=== PATIENT | female | born 1965 | race Caucasian/White ===

== ENCOUNTER 2019-05-20 08:29 | Observation (INO) | payer OTHER, SELFPAY ==
[2019-05-20 08:52] LABS: Urine Blood 1+ (NEG); Urine Glucose NEGATIVE (NEG); Urine Protein TRACE (NEG); Urine Specific Gravity 1.015 (1.005-1.030)
[2019-05-20] MEDS ORDERED: ONDANSETRON 4 MG/2 ML VIAL ONE (09:12)
[2019-05-20] MEDS ORDERED: FAMOTIDINE 20 MG/2 ML VIAL IV ONE (09:12)
[2019-05-20] MEDS ORDERED: MORPHINE 2 MG/ML SYR ONE ×2 (09:12→09:51)
[2019-05-20] MEDS ORDERED: NA CHLORIDE 0.9% 1,000 ML ONE (09:12)
[2019-05-20 09:17] LABS: Absolute Lymphocytes (CBC) 1.4 K/uL (0.7-4.9); Basophils % 0.4 % (0-1.3); Hematocrit 37.9 % (36.0-45.0); Lymphocytes % 9.9 % (15.3-44.8); RBC Red Blood Cell Count 4.09 M/uL (3.86-4.86)
[2019-05-20 09:21] LABS: Protime INR 0.95
[2019-05-20 09:27] LABS: Urine Bacteria <20 /HPF (<20); Urine Culture Reflex Order NOT NEEDED; Urine Mucus SLIGHT /HPF (NONE SEEN); Urine RBC <5 /HPF (NONE SEEN)
[2019-05-20 09:43] LABS: ALT/SGPT 39 U/L (12-78); AST/SGOT 29 U/L (15-37); Albumin 3.8 g/dL (3.4-5.0); Alkaline Phosphatase 115 U/L (45-117); BUN Blood Urea Nitrogen 24 mg/dL (7-18); Bicarbonate 25 mmol/L (21-32); Bilirubin Direct < 0.1 mg/dL (0-0.2); Bilirubin Total 0.3 mg/dL (0.2-1.0); Glucose Level 131 mg/dL (74-106); Lipase 79 U/L (73-393); NT PRO-BNP 30 pg/mL (<125); Potassium 4.2 mmol/L (3.5-5.1); Protein, Total 8.6 g/dL (6.4-8.2); Sodium Level 136 mmol/L (136-145); Troponin (Emerg Dept Use Only) < 0.02 ng/mL (0.0-0.045)
[2019-05-20] MEDS ORDERED: CEFTRIAXONE/SWI 1gm 1 GM/10 ML SYR ONE (10:24)
[2019-05-20] MEDS ORDERED: PIPER/TAZO/NS 3.375gm 3.375 GM/100 ML BAG ONE (10:31)
--- NOTE | 2019-05-20 10:31 | RAD REPORT ---
EXAM DESCRIPTION: CT - Abdomen Pelvis W Contrast - 05/20/2019 10:12 am CLINICAL HISTORY: ABD PAIN COMPARISON: None. TECHNIQUE: Biphasic, helical CT imaging of the abdomen and pelvis was performed following 100 ml non -ionic IV contrast. No oral contrast given. All CT scans are performed using dose optimization technique as appropriate and may include automated exposure control or mA/KV adjustment according to patient size. FINDINGS: No suspicious findings in the lung bases. The liver, spleen, and pancreas show no suspicious findings. Gallbladder and biliary tree are also wi thout suspicious finding. Patient has severe hydronephrosis of the pelvis and calices of the right kidney without hydroureter. No dilatation of the left collecting system. Cortical thinning is noted on the right when compared to the left with a more lobulated contour to the kidney. Renal function is not clearly asymmetric. Nono bstructing calculi seen in the upper pole of the right kidney. No pyelonephritis or acute parenchymal process. No bladder abnormalities. No adrenal abnormalities. No gastric dilatation or gastric wall thickening. No small bowel abnormality. The appendix is abnorma l at 13 mm. Periappendiceal inflammatory stranding is present. No fecalith seen. No mass is identifie d. Remainder the colon is unremarkable. The no free air or pneumatosis. Small quantity of fluid is p resent in the cul de sac and right adnexa believed to be reactive fluid from the appendicitis. No ma ss or bulky lymphadenopathy. Small fat only umbilical hernia is present. Tubal ligation clips are present. No left ovarian abnormality. A 2.5 centimeter low-density mass is p resent right lower uterine segment region probably a small fibroid. This is potentially a large nabot hian cyst. No primary right ovarian process suspected. Disc and bony degenerative changes are present. No acute vascular finding. IMPRESSION: Acute appendicitis findings are present. The appendix is in classic right lower quadrant location. Periappendiceal inflammatory stranding is present. No abscess, free air or other complicating factor. Severe hydronephrosis of the pelvis and calices of the right kidney without clear delay or asymmetry of function. 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 Additional nonacute findings detailed in the body of the report.
--- NOTE | 2019-05-20 10:43 | ER ---
Nurse's Notes [facility] Name: Herminia Cleaning Age: 54 yrs Sex: Female : 1965 Arrival Date: 05/20/2019 Time: 08:32 Bed 15 Private MD: Unknown, Unknown Diagnosis: Acute appendicitis Presentation: 05/20 08:53 Presenting complaint: Patient states: Had a couple drinks last night, home by 1230. At jl7 about 0300 my stomach was burning, vomited once and then my chest started hurting, radiating to left arm and back. It also feels like I need to pee when I stand up but I don't. Transition of care: patient was not received from another setting of care. Onset of symptoms was May 20, 2019 at 03:00. Risk Assessment: Do you want to hurt yourself or someone else? Patient reports no desire to harm self or others. Initial Sepsis Screen: Does the patient meet any 2 criteria? No. Patient's initial sepsis screen is negative. Does the patient have a suspected source of infection? No. Patient's initial sepsis screen is negative. Care prior to arrival: None. 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 - Social history:: Smoking status: Patient/guardian denies using tobacco, Patient uses alcohol, occasionally. - Ebola Screening: : No symptoms or risks identified at this time. Screenin:10 Abuse screen: Denies threats or abuse. Nutritional screening: No deficits noted. em Tuberculosis screening: No symptoms or risk factors identified. Fall Risk None identified. Assessment: 08:35 General: Appears in no apparent distress. uncomfortable, Behavior is calm, cooperative, jl7 appropriate for age. Pain: Complains of pain in anterior aspect of left upper chest Pain radiates to back and left arm Pain currently is 9 out of 10 on a pain scale. Quality of pain is described as squeezing, Pain began 0300 Is continuous. Neuro: Level of Consciousness is awake, alert, obeys commands, Oriented to person, place, time, situation. Cardiovascular: Patient's skin is warm and dry. Rhythm is sinus rhythm. Respiratory: Airway is patent Respiratory effort is even, unlabored, Respiratory pattern is regular, symmetrical. GI: Abdomen is round non-distended, Reports epigastric pain, nausea, vomiting. : Reports urinary frequency. Derm: Skin is pink, warm \T\ dry. 09:45 Reassessment: Pt reports decreased chest pain and decreased epigastric burning. Reports jl7 RLQ pain, feels like pressure, rated 9/10, pt guarding, reports last BM 2 days ago. ERP notified, see MAR for orders. Vital Signs: 08:56 BP 156 / 97; Pulse 91; Resp 16 S; Temp 98.3(O); Pulse Ox 100% on R/A; Weight 99.79 kg jl7 (R); Height 5 ft. 2 in. (157.48 cm) (R); Pain 9/10; 09:30 BP 126 / 58; Pulse 83; Resp 16 S; Pulse Ox 100% on R/A; Pain 9/10; jl7 10:45 BP 122 / 65; Pulse 81; Resp 16 S; Pulse Ox 100% on R/A; jl7 13:00 BP 128 / 76; Pulse 77; Resp 16 S; Pulse Ox 100% on R/A; jl7 08:56 Body Mass Index 40.24 (99.79 kg, 157.48 cm) jl7 ED Course: 08:32 Patient arrived in ED. ag5 08:33 Unknown, Unknown is Private Physician. ag5 08:33 Lotus Goldstein RN is Primary Nurse. jl7 08:35 Eddi Don MD is Attending Physician. kdr 08:55 Triage completed. jl7 08:56 Arm band placed on right wrist. jl7 09:07 Urine collected: clean catch specimen, cloudy. ms 09:10 Patient has correct armband on for positive identification. Placed in gown. Bed in low em position. Call light in reach. Side rails up X2. groundwater monitoring technician on. Pulse ox on. NIBP on. 09:10 Initial lab(s) drawn, by me, sent to lab. Inserted saline lock: 22 gauge in right em antecubital area, using aseptic technique. Blood collected. 09:10 Patient maintains SpO2 saturation greater than 95% on room air. em 09:18 Radiology exam delayed due to lab results not completed at this time. (BUN/Creatinine). kw1 09:24 XRAY Chest (1 view) In Process Unspecified. EDMS 10:11 CT Abd/Pelvis - IV Contrast Only In Process Unspecified. EDMS 10:16 CT completed. Patient tolerated procedure well. Patient moved back from CT. ka 10:41 Fady Duarte MD is Hospitalizing Provider. kdr 12:06 initiated a transfer with Isi at the [facility] transfer center. eb 12:[address] Portillo the hospitalist substation designer for [facility] with Dr. Don for patient transfer consultation. 13:31 Fady Duarte MD is Hospitalizing Provider. kdr 13:54 No provider procedures requiring assistance completed. Patient admitted, IV remains in jl7 place. intact, No redness/swelling at site. Administered Medications: 09:12 Drug: NS 0.9% 1000 ml Route: IV; Rate: 1 bolus; Site: right antecubital; jl7 10:30 Follow up: Response: No adverse reaction; IV Status: Completed infusion; IV Intake: jl7 1000ml 09:13 Drug: Pepcid 20 mg Route: IVP; Site: right antecubital; jl7 09:59 Follow up: Response: No adverse reaction; Marked relief of symptoms jl7 09:14 Drug: Zofran 4 mg Route: IVP; Site: right antecubital; jl7 09:45 Follow up: Response: No adverse reaction jl7 09:16 Drug: morphine 2 mg Route: IVP; Site: right antecubital; jl7 09:45 Follow up: Response: No adverse reaction; Pain is decreased jl7 09:55 Drug: morphine 4 mg Route: IVP; Site: right antecubital; jl7 10:10 Follow up: Response: No adverse reaction; Pain is unchanged, physician notified jl7 10:32 Drug: Rocephin 1 grams Route: IV; Rate: calculated rate; Site: right antecubital; jl7 10:35 Follow up: Response: No adverse reaction; IV Status: Completed infusion jl7 10:43 Drug: Zosyn 4.5 grams Route: IVPB; Infused Over: 60 mins; Site: right antecubital; jl7 11:43 Follow up: Response: No adverse reaction; IV Status: Completed infusion jl7 11:46 Drug: fentaNYL (PF) 50 mcg Route: IVP; Site: right antecubital; jl7 12:00 Follow up: Response: No adverse reaction; Pain is decreased jl7 Intake: 10:30 IV: 1000ml; Total: 1000ml. jl7 Outcome: 10:43 Decision to Hospitalize by Provider. kdr 12:27 ER care complete, transfer ordered by . kdr 13:31 Decision to Hospitalize by Provider. kdr 13:54 Admitted to OR accompanied by nurse, via stretcher, with chart. jl7 13:54 Condition: stable 13:54 Discharge instructions given to patient, Instructed on the need for admit, Demonstrated understanding of instructions. 13:55 Patient left the ED. jl7 Signatures: Dispatcher [employer] EDMS Eddi Don MD MD [facility] Adarsh Traylor, ANALYST GEOCHEMICAL PROSPECTING ANALYST GEOCHEMICAL PROSPECTING Maria Guadalupe Poon ms, Lotus Perales, RN RN jl7 Devika Lau1 Brianne Mireles, Jazmín ag5 Corrections: (The following items were deleted from the chart) 09:35 General: Appears in no apparent distress. uncomfortable, Behavior is calm, jl7 cooperative, appropriate for age, jl7 09:35 Pain: Complains of pain in anterior aspect of left upper chest Pain radiates to jl7 back and left arm Pain currently is 9 out of 10 on a pain scale. Quality of pain is described as squeezing, Pain began 0300 Is continuous, jl7 09:35 Neuro: Level of Consciousness is awake, alert, obeys commands, Oriented to jl7 person, place, time, situation, jl7 09:35 Cardiovascular: Patient's skin is warm and dry. Rhythm is sinus rhythm jl7 jl7 09:35 Respiratory: Airway is patent Respiratory effort is even, unlabored, Respiratory jl7 pattern is regular, symmetrical, jl7 09:35 GI: Abdomen is round non-distended, Reports epigastric pain, nausea, vomiting, [id number] 09:57 09:35 : Reports urinary frequency, jl7 jl7 09:57 09:35 Derm: Skin is pink, warm \T\ dry. jl7 jl7
--- NOTE | 2019-05-20 10:44 | EDPHYS ---
Physician Documentation [facility] Name: Herminia Cleaning Age: 54 yrs Sex: Female : 1965 Arrival Date: 05/20/2019 Time: 08:32 Bed 15 Private MD: Unknown, Unknown ED Physician Eddi Don HPI: 05/20 09:22 This 54 yrs old Female presents to ER via Ambulatory with complaints of Chest kdr Pain, Abdominal Pain, Back Pain. 09:22 The patient or guardian reports chest pain that is located primarily in the epigastric kdr area, anterior chest wall, left, chest diffusely. Onset: suddenly, this morning, at 03:00. The pain radiates to the left scapula, back. Associated signs and symptoms: Pertinent positives: abdominal pain, nausea, Pertinent negatives: recent travel, shortness of breath, syncope, vomiting. The chest pain is described as aching, burning, causing indigestion, a pressure. Duration: The patient or guardian reports a single episode, that is still ongoing, but improving. Modifying factors: The symptoms are alleviated by nothing. the symptoms are aggravated by nothing. Severity of pain: At its worst the pain was moderate severe just prior to arrival, in the emergency department the pain is unchanged. The patient has not experienced similar symptoms in the past. The patient has not recently seen a physician. States that last evening in the hour or so prior to midnight she had several alcoholic beverages and then awoke at 03:00 with severe abdominal and chest pain. 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 - Social history:: Smoking status: Patient/guardian denies using tobacco, Patient uses alcohol, occasionally. - Ebola Screening: : No symptoms or risks identified at this time. ROS: 09:22 Constitutional: Negative for fever, chills, and weight loss, Eyes: Negative for injury, kdr pain, redness, and discharge, ENT: Negative for injury, pain, and discharge, Neck: Negative for injury, pain, and swelling, Respiratory: Negative for shortness of breath, cough, wheezing, and pleuritic chest pain, Back: Negative for injury and pain, : Negative for injury, bleeding, discharge, and swelling, MS/Extremity: Negative for injury and deformity, Skin: Negative for injury, rash, and discoloration, Neuro: Negative for headache, weakness, numbness, tingling, and seizure activity. Psych: Negative for depression, anxiety, suicide ideation, homicidal ideation, and hallucinations, Allergy/Immunology: Negative for hives, rash, and allergies, Endocrine: Negative for neck swelling, polydipsia, polyuria, polyphagia, and marked weight changes, Hematologic/Lymphatic: Negative for swollen nodes, abnormal bleeding, and unusual bruising. 09:22 Cardiovascular: Positive for chest pain, of the xyphoid area, mid-sternal area, right breast and left breast, Negative for edema, orthopnea, palpitations, paroxysmal nocturnal dyspnea. 09:22 Abdomen/GI: Positive for abdominal pain, abdominal cramps, Negative for abdominal distension, dysphagia, hematemesis, black/tarry stool, rectal pain, rectal bleeding, bowel incontinence, flatulence. Exam: 09:22 Constitutional: This is a well developed, well nourished patient who is awake, alert, kdr and in no acute distress. Head/Face: Normocephalic, atraumatic. Eyes: Pupils equal round and reactive to light, extra-ocular motions intact. Lids and lashes normal. Conjunctiva and sclera are non-icteric and not injected. Cornea within normal limits. Periorbital areas with no swelling, redness, or edema. Neck: Trachea midline, no thyromegaly or masses palpated, and no cervical lymphadenopathy. Supple, full range of motion without nuchal rigidity, or vertebral point tenderness. No Meningismus. Chest/axilla: Normal chest wall appearance and motion. Nontender with no deformity. No lesions are appreciated. Cardiovascular: Regular rate and rhythm with a normal S1 and S2. No gallops, murmurs, or rubs. Normal PMI, no JVD. No pulse deficits. Respiratory: Lungs have equal breath sounds bilaterally, clear to auscultation and percussion. No rales, rhonchi or wheezes noted. No increased work of breathing, no retractions or nasal flaring. Back: No spinal tenderness. No costovertebral tenderness. Full range of motion. Skin: Warm, dry with normal turgor. Normal color with no rashes, no lesions, and no evidence of cellulitis. MS/ Extremity: Pulses equal, no cyanosis. Neurovascular intact. Full, normal range of motion. Neuro: Awake and alert, GCS 15, oriented to person, place, time, and situation. Cranial nerves II-XII grossly intact. Motor strength 5/5 in all extremities. Sensory grossly intact. Cerebellar exam normal. Normal gait. Psych: Awake, alert, with orientation to person, place and time. Behavior, mood, and affect are within normal limits. 09:22 Abdomen/GI: Inspection: abdomen appears normal, Bowel sounds: active, diminished, in all quadrants, Palpation: soft, mild abdominal tenderness, in the abdomen diffusely, mass, is not appreciated, rebound tenderness, is not appreciated. 09:22 ECG was reviewed by the Attending Physician. kdr Vital Signs: 08:56 BP 156 / 97; Pulse 91; Resp 16 S; Temp 98.3(O); Pulse Ox 100% on R/A; Weight 99.79 kg jl7 (R); Height 5 ft. 2 in. (157.48 cm) (R); Pain 9/10; 09:30 BP 126 / 58; Pulse 83; Resp 16 S; Pulse Ox 100% on R/A; Pain 9/10; jl7 10:45 BP 122 / 65; Pulse 81; Resp 16 S; Pulse Ox 100% on R/A; jl7 13:00 BP 128 / 76; Pulse 77; Resp 16 S; Pulse Ox 100% on R/A; jl7 08:56 Body Mass Index 40.24 (99.79 kg, 157.48 cm) jl7 MDM: 10:43 Patient medically screened. kdr 10:43 Data reviewed: vital signs, nurses notes, lab test result(s), radiologic studies. kdr Counseling: I had a detailed discussion with the patient and/or guardian regarding: the historical points, exam findings, and any diagnostic results supporting the discharge/admit diagnosis, lab results, radiology results, the need for further work-up and treatment in the hospital. Physician consultation: Fady Duarte MD regarding admission, patient's condition, need to evaluate the patient as soon as possible. 05/20 08:46 Order name: Urine Culture eb 05/20 08:46 Order name: Urine Microscopic Only; Complete Time: 10:16 eb 05/20 08:47 Order name: Urine Culture EDMS 05/20 08:47 Order name: Urine Dipstick--Ancillary (enter results); Complete Time: 10:16 eb 05/20 09:04 Order name: Basic Metabolic Panel kdr 05/20 09:04 Order name: CBC with Diff kdr 05/20 09:04 Order name: LFT's kdr 05/20 09:04 Order name: Magnesium kdr 05/20 09:04 Order name: NT PRO-BNP; Complete Time: 10:16 kdr 05/20 09:04 Order name: PT-INR; Complete Time: 10:16 kdr 05/20 09:04 Order name: Troponin (emerg Dept Use Only); Complete Time: 10:16 kdr 05/20 09:04 Order name: Creatinine for Radiology; Complete Time: 10:16 kdr 05/20 09:04 Order name: Lipase; Complete Time: 10:16 kdr 05/20 09:04 Order name: ETOH Level; Complete Time: 10:16 [facility] 05/20 09:04 Order name: XRAY Chest (1 view); Complete Time: 16:42 kdr 05/20 09:04 Order name: Basic Metabolic Panel; Complete Time: 10:16 EDMS 05/20 09:04 Order name: CBC with Automated Diff; Complete Time: 10:16 EDMS 05/20 09:04 Order name: Liver (Hepatic) Function; Complete Time: 10:16 EDMS 05/20 09:04 Order name: Magnesium; Complete Time: 10:16 EDMS 05/20 09:11 Order name: CT Abd/Pelvis - IV Contrast Only; Complete Time: 16:42 kdr 05/20 12:16 Order name: Urine --Ancillary (enter results); Complete Time: 16:42 iw 05/20 13:40 Order name: Basic Metabolic Panel EDMS 05/20 13:40 Order name: Basic Metabolic Panel EDMS 05/20 13:40 Order name: CBC with Automated Diff EDMS 05/20 13:40 Order name: CBC with Automated Diff EDMS 05/20 13:40 Order name: Lipase EDMS 05/20 13:40 Order name: Lipase EDMS 05/20 13:40 Order name: Liver (Hepatic) Function EDMS 05/20 13:40 Order name: Liver (Hepatic) Function EDMS 05/20 09:04 Order name: Cardiac monitoring; Complete Time: : kdr 05/20 09:04 Order name: EKG - Nurse/Tech; Complete Time: : kdr 05/20 09:04 Order name: IV Saline Lock; Complete Time: : kdr 05/20 09:04 Order name: Labs collected and sent; Complete Time: : kdr 05/20 09:04 Order name: O2 Per Protocol; Complete Time: : kdr 05/20 09:04 Order name: O2 Sat Monitoring; Complete Time: : kdr 05/20 13:40 Order name: NPO EDMS EC: Rate is 82 beats/min. Rhythm is regular, Normal Sinus Rhythm with No ectopy. QRS [place] kdr is Normal. DE interval is normal. QRS interval is normal. QT interval is normal. No Q waves. T waves are Normal. No ST changes noted. Clinical impression: Normal ECG and NSR w/ Non-specific ST/T Changes. Administered Medications: 09:12 Drug: NS 0.9% 1000 ml Route: IV; Rate: 1 bolus; Site: right antecubital; jl7 10:30 Follow up: Response: No adverse reaction; IV Status: Completed infusion; IV Intake: jl7 1000ml 09:13 Drug: Pepcid 20 mg Route: IVP; Site: right antecubital; jl7 09:59 Follow up: Response: No adverse reaction; Marked relief of symptoms jl7 09:14 Drug: Zofran 4 mg Route: IVP; Site: right antecubital; jl7 09:45 Follow up: Response: No adverse reaction jl7 09:16 Drug: morphine 2 mg Route: IVP; Site: right antecubital; jl7 09:45 Follow up: Response: No adverse reaction; Pain is decreased jl7 09:55 Drug: morphine 4 mg Route: IVP; Site: right antecubital; jl7 10:10 Follow up: Response: No adverse reaction; Pain is unchanged, physician notified jl7 10:32 Drug: Rocephin 1 grams Route: IV; Rate: calculated rate; Site: right antecubital; jl7 10:35 Follow up: Response: No adverse reaction; IV Status: Completed infusion jl7 10:43 Drug: Zosyn 4.5 grams Route: IVPB; Infused Over: 60 mins; Site: right antecubital; jl7 11:43 Follow up: Response: No adverse reaction; IV Status: Completed infusion jl7 11:46 Drug: fentaNYL (PF) 50 mcg Route: IVP; Site: right antecubital; jl7 12:00 Follow up: Response: No adverse reaction; Pain is decreased jl7 Disposition: 05/20/19 13:31 Hospitalization ordered by Fady Duarte for Observation. Preliminary diagnosis is Acute appendicitis. - Bed requested for Operating Room. - Status is Observation. jl7 - Condition is Fair. - Problem is new. - Symptoms are unchanged. UTI on Admission? No Signatures: Dispatcher [employer] EDMS Eddi Don MD MD kdr Lotus Goldstein RN RN jl7 Corrections: (The following items were deleted from the chart) 10:52 10:43 Hospitalization Ordered by Fady Duarte MD for Observation. Preliminary diagnosis kdr is Acute appendicitis; Chronic right hydronephrosis. Bed requested for Telemetry/MedSurg (observation). Status is Observation. Condition is Fair. Problem is new. Symptoms are unchanged. UTI on Admission? No. kdr 12:26 10:52 05/20/2019 10:43 Hospitalization Ordered by Fady Duarte MD for Observation. kdr Preliminary diagnosis is Acute appendicitis; Chronic right hydronephrosis. Bed requested for Operating Room. Status is Observation. Condition is Fair. Problem is new. Symptoms are unchanged. UTI on Admission? No. kdr 13:30 12:27 05/20/2019 12:27 Transfer ordered to [facility]. Diagnosis is kdr Acute appendicitis. Reason for transfer: Higher level of care. Accepting physician is Dr. Pichardo ( Service). Condition is Fair. Problem is new. Symptoms have improved. kdr 13:55 13:31 Hospitalization Ordered by Fady Duarte MD for Observation. Preliminary diagnosis jl7 is Acute appendicitis. Bed requested for Operating Room. Status is Observation. Condition is Fair. Problem is new. Symptoms are unchanged. UTI on Admission? No. kdr
--- NOTE | 2019-05-20 10:46 | RAD REPORT ---
EXAM DESCRIPTION: RAD - Chest Single View - 05/20/2019 9:24 am CLINICAL HISTORY: Chest pain COMPARISON: None. TECHNIQUE: AP portable chest image was obtained 0919 hours . FINDINGS: Lungs are clear. Heart and vasculature are normal. No measurable pleural effusion and no p neumothorax. No acute bony abnormality seen. No acute aortic findings suspected. IMPRESSION: No acute cardiopulmonary process.
[2019-05-20] MEDS ORDERED: PIPERACIL/TAZO 4.5 GM VIAL IV ONE (10:48)
[2019-05-20] MEDS ORDERED: MORPHINE 4 MG/ML SYR IV PRN (10:49)
[2019-05-20] MEDS ORDERED: PIPER/TAZO/NS 2.25gm 2.25 GM/100 ML BAG ONE (10:50)
[2019-05-20] MEDS ORDERED: FENTANYL CITR 100 MCG/2 ML ONE ×2 (11:35→13:54)
[2019-05-20] MEDS ORDERED: Ringers Lactate 1,000 ML IV ONE (13:36)
[2019-05-20] MEDS ORDERED: D5 0.45 NS 1,000 ML IV SCH (13:38)
[2019-05-20] MEDS ORDERED: ACETAMINOPHEN 500 MG TAB PO PRN (13:38)
[2019-05-20] MEDS ORDERED: ONDANSETRON 4 MG/2 ML VIAL IV PRN (13:38)
[2019-05-20] MEDS ORDERED: SUCCINYLCHOLINE 20 MG/ML (10 ML) IV ONE (13:52)
[2019-05-20] MEDS ORDERED: MIDAZOLAM HCL 2 MG/2 ML INJ ONE (13:54)
[2019-05-20] MEDS ORDERED: PROPOFOL 200 MG/20 ML VIAL IV ONE (13:54)
[2019-05-20] MEDS ORDERED: ROCURONIUM 50 MG/5 ML VIAL IV ONE (13:54)
[2019-05-20] MEDS ORDERED: BUPIVACA 0.5%/EPI 0.0005%/PF 10 ML VIAL ONE (14:14)
[2019-05-20] MEDS ORDERED: NEOSTIGMINE 1 MG/ML -10 ML VIAL ONE (14:46)
[2019-05-20] MEDS ORDERED: GLYCOPYRROLATE 0.2 MG/ML SYR ONE (14:46)
--- NOTE | 2019-05-20 15:06 | P.OP ---
Preoperative diagnosis: Acute Non-Perforated Appendicitis Postoperative diagnosis: Acute Non-Perforated Appendicitis Primary procedure: Laparoscopic Appendectomy Anesthesia: GETA + Local Estimated blood loss: <10cc Specimen: Vermiform Appendix Findings: Acute Non-Perforated Appendicitis Complications: None Transferred to: Recovery Room Condition: Good
[2019-05-20] MEDS ORDERED: KETOROLAC 30 MG/ML INJ ONE (15:54)
[2019-05-20] MEDS ORDERED: MORPHINE 4 MG/ML SYR ONE (15:54)
[2019-05-20 17:05] VITALS: O2SAT 100
[2019-05-20 17:32] VITALS: BP 107/55; TEMP 98.2
--- NOTE | 2019-05-20 21:23 | HP ---
Date of Admission: 05/20/2019 Brief History Of Present Illness: Patient is a 54-year-old female who comes to the hospital with approximately 1-day history of epigastric abdominal pain now radiating down to the right lower quadrant. She states it was sharp, stabbing, associated with some mild nausea. No vomiting. Some s ubjective fever and chills. She has never had similar episodes before in the past. No change in bow el or bladder habits. No sick contacts. No recent travel. Past Medical History: Chronic bronchitis. Past Surgical History: She has had a tubal ligation and right hand surgery. Allergies: NO KNOWN DRUG ALLERGIES. Medications: None. Social History: She denies smoking. She does drink alcohol recreationally. She denies any other re creational drug use. She is currently unemployed. Review of Systems: 10-point review of systems other than in HPI denies. Physical Examination: General: At the time of my examination, she is awake, alert, oriented. Psychiatric: She is appropriate conversive. HEENT: She is normocephalic. Sclerae icteric. Mucous membranes are moist. Oropharynx clear. Neck: Supple. No JVD. Chest: Normal expansion and excursion. Cardiovascular: Regular rate and rhythm. Pulmonary: Clear to auscultation bilaterally. Abdomen: Soft with positive right lower quadrant tenderness to palpation, positive at McBurney's poi nt. There is mild focal peritonitis in this area. Extremities: No clubbing, cyanosis, or edema. She has missing middle distal digit on the right hand . Laboratory Data: She had a laboratory exam which revealed a white blood count 14.2, hemoglobin 12.8, hematocrit of 37.9, platelet count is 469, neutrophils were 83%. PT is 11.2, INR 0.95. Sodium 136, potassium 4.2, chloride 106, carbon dioxide 25, BUN 24, creatinine 1.04, glucose is 131, magnesium 2 .0, total bilirubin 0.3, direct component is 0.1, AST is 29, ALT 39, alkaline phosphatase 115, lipase is 79. UA showed 1+ blood, 3+ leukocyte esterase, 5-10 squamous cells, white blood cells 20/50. Ur ine test was negative. Plasma alcohol level is less than 3. She had imaging performed as well which included a CT scan of the abdomen and pelvis, which was offic ially read as acute appendicitis. Findings are present. The appendix is in the classic right lower quadrant location. Tubal ligation clips were present. Severe hydronephrosis of the pelvis, calluses of the right kidney without clear delay or asymmetric in function. 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 Assessment And Plan: This is a 54-year-old female who comes in with classic signs of acute appendici tis. 1.Intravenous fluid hydration. 2.Antibiotic coverage. 3.I have explained risks, benefits, and alternatives of laparoscopic, possible open appendectomy inc luding, but not limited to bleeding, infection, damage to surrounding tissues, need for further opera tive procedures. Patient agrees to proceed as indicated. SELENA/JIE Voice ID: [id number]
--- NOTE | 2019-05-20 22:29 | OP ---
Date of Procedure: 05/20/2019 Surgeon: Shea Duarte MD, Preoperative Diagnosis: Acute nonperforated appendicitis. Postoperative Diagnosis: Acute nonperforated appendicitis. Procedure Performed: Laparoscopic appendectomy. Anesthesia: General endotracheal plus local. Estimated Blood Loss: Less than 10 mL. Specimen: Vermiform appendix. Findings: Acute nonperforated appendicitis. Complications: None. Disposition: Transferred to recovery room in good condition. Procedure In Detail: After informed consent was obtained, the patient was brought to the operating r oom, prepped and draped in the usual sterile fashion. After adequate anesthesia was achieved, an inf raumbilical area was anesthetized with 0.5% Marcaine, sharply incised and a 5-mm trocar was introduce d in the abdomen without evidence of complication. Insufflation was obtained to 15 mmHg. At this ti me, there was no injury to vital structures upon entry into the abdomen. Additional trocar site was chosen in the right lower quadrant. This was similarly anesthetized and sharply incised. A 5-mm tro car was introduced in the abdomen without evidence of complication. The umbilical trocar was then up -sized to 12 mm under visualization without evidence of complication. Additional trocar site was cho sen in the left lower quadrant. This was similarly anesthetized, sharply incised, and a 5-mm trocar was introduced into the abdomen without evidence of complication. Patient was positioned head-down r ight side up position. I used a ratcheted grasper and grasped the patient's appendix. It was firmly adherent to the lateral abdominal wall. I bluntly dissected this off and brought it down to the con fluence of the cecum. I created a mesoappendiceal window using a Jenae retractor. Endo GONZALES 35 helen e load was fired across the base of the appendix with good approximation of tissues. There was no bl eeding from the staple line. The LigaSure device was then used to take the mesoappendix down without evidence of complication. The appendix then placed in EndoCatch bag and removed the umbilical troca r. Insufflation was obtained and the appendix passed off for pathologic examination. The area was c opiously irrigated multiple times until completely clear and then suctioned out. Patient was position ed in neutral position. Suction and irrigation occurred 1 last time and then the irrigant was then s uctioned out as much as possible. The umbilical trocar was then removed. The umbilical trocar site was then closed using a Ravinder-Vishal suture passer with 3 interrupted 0 Vicryl sutures in interrup shea fashion with good approximation of tissues. The abdomen was then completely desufflated under di rect visualization without evidence of complication. All skin incisions were copiously irrigated and closed with a 4-0 Monocryl in a running fashion. Dermabond was placed over the top. Patient tolera shea the procedure well without evidence of complication and transferred in good condition. All count s were correct at the end of the case. SELENA/JIE Voice ID: [id number] Report ID: [id number]
--- NOTE | 2019-05-21 10:04 | EKG ---
Test Date: 2019-05-20 Test Time: 08:47:40 Cloth Pattern Maker: LESLIE MEASUREMENT RESULTS: Intervals: Rate: 82 CA: 170 QRSD: 82 QT: 386 QTc: 450 [place]: P: 48 CA: 170 QRS: 62 T: 27 INTERPRETIVE STATEMENTS: Normal sinus rhythm Normal ECG No previous ECG available for comparison Electronically Signed On 05-21-19 10:02:51 CDT by Dung Hernandez
== END 2019-05-20 17:46 | disposition home or self-care (01) ==
LOC: ER 08:29 → ERHOLD 13:38
PROVIDERS: ADMIT Surgery; ATTEND Surgery
PROC: 0DTJ4ZZ Resection of Appendix, Percutaneous Endoscopic Approach (ICD-10-PCS; principal; 2019-05-20 13:00)
DX: K35.890 Other acute appendicitis without perforation or gangrene (principal); E66.01 Morbid (severe) obesity due to excess calories; Z68.41 Body mass index [BMI] 40.0-44.9, adult
CPT/HCPCS: 36415; 71045; 74177; 80048; 80076; 80320; 81003; 81015; 81025; 83690; 83735; 83880; 84484; 85025; 85610; 87086; 87088; 88304; 93005; 96361; 96365; 96375; 99285; G0378; J0330; J0696; J2250; J2270; J2405; J2543; J2704; J2710; J3010; J7030; J7120; Q9967